=== PATIENT | male | born 1940 | race Caucasian/White ===

== ENCOUNTER 2019-08-18 09:09 | Outpatient (CLI) | payer OTHER, SELFPAY ==
--- NOTE | ~2019-08-18 | CT_ITS ---
EXAMINATION: CT abdomen pelvis wo/w con DATE: 08/18/2019 10:15 INDICATION: Microscopic hematuria. TECHNIQUE: Computed tomography (CT) of the abdomen and pelvis was performed without and with intraven ous contrast using a total of 130 mL Omnipaque-350 intravenous contrast with a double-bolus technique for simultaneous opacification of the renal parenchyma and renal collecting system. Automated exposu re control and iterative reconstruction technique were employed. The dose-length product was 1938.83 mGy-cm. COMPARISON: CT abdomen and pelvis 04/12/2015 FINDINGS: The visualized portions of the lung bases demonstrate mild atelectasis. No pleural effusion. There is chronic mild pleural thickening on the right. The heart size is normal. There are coronary artery ca lcifications. There are changes of coronary bypass grafting. No pericardial effusion. The liver and s pleen are normal. There are changes of cholecystectomy. There is a calcification in the head of the p ancreas, consistent with chronic pancreatitis. The adrenal glands are normal. There is a 1.5 cm cyst in right kidney. There is no urolithiasis. The ureters and bladder are well opacified and are normal. There is diverticulosis of the colon without evidence of diverticulitis. There are no dilated loops of bowel. The appendix is normal. 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 There are no pathologically enlarged lymph nodes. There is no free intraperitoneal fluid. There is prominent fa t in right inguinal canal that may be a hernia. There is severe lumbar spondylosis. There is moderate thoracic spondylosis. IMPRESSION: 1. No etiology for hematuria. 2. 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 Reviewed, dictated and finalized at location A.
[2019-08-18 09:48] LABS: Estimated Glomerular Filt Rate > 60
== END 2019-08-18 09:10 | disposition home or self-care (01) ==
LOC: ANHIMG 09:17
PROVIDERS: Visit Provider Urology
DX: R31.29 Other microscopic hematuria (principal); I71.4 Abdominal aortic aneurysm, without rupture
CPT/HCPCS: 36415; 74178; Q9967

== ENCOUNTER 2019-11-28 14:00 | Outpatient (CLI) | payer OTHER, SELFPAY ==
--- NOTE | 2019-11-28 | ECHO_ITS ---
Patient Info Name: Josh Webb Age: 79 years : 1940 Gender: Male Ht: 70 in Wt: 200 lbs BSA: 2.14 m2 HR: 53 bpm BP: 159 / 88 mmHg Heart Rhythm: Sinus Rhythm Technical Quality: Good Exam Date: 11/28/2019 2:23 PM Exam Location: [facility] Patient Status: Outpatient Admit Date: 11/28/2019 Staff Ordering Physician: CleveStephen DO Supervisor Ditching: Puja Kunz RDCS Attending Provider: CleveStephen DO Exam Type: CA echo doppler color flow Study Info Indications M79.89 - SWELLING OF BOTH LOWER EXTREMITIES Complete two-dimensional, color flow and Doppler transthoracic echocardiogram is performed. Summary 1. Complete two-dimensional, color flow and Doppler transthoracic echocardiogram is performed. 2. Left ventricular systolic function is normal, estimated at 50-55%. 3. The left ventricular diastolic function is grade I diastolic dysfunction. 4. Left atrial chamber dimension is moderately enlarged. 5. Trivial amount of mitral valve regurgitation. Left Ventricle Left ventricular chamber dimension is normal. Left ventricular systolic function is normal, estimated at 50-55%. The left ventricular diastolic function is grade I diastolic dysfunction. Right Ventricle Right ventricular chamber dimension is mildly enlarged. Left Atria Left atrial chamber dimension is moderately enlarged. Right Atria Right atrial chamber dimension is normal. Aortic Valve The aortic valve is normal. Pulmonic Valve The pulmonic valve is normal. There is trace pulmonic regurgitation. Mitral Valve The mitral valve has normal leaflets. There is trace mitral valve regurgitation. The mitral valve annulus is mildly calcified. Tricuspid Valve The tricuspid valve leaflets are normal. Pericardium/Pleural The pericardium appears normal. Aorta The aortic root size at the sinus of Valsalva is normal. Left Ventricular Outflow Tract Name Value Normal LVOT 2D LVOT Diameter 2.0 cm LVOT Doppler LVOT Peak Gradient 4 mmHg LVOT Mean Gradient 2 mmHg LVOT VTI 26 cm LVOT VTI/AV VTI Ratio 0.9 LVOT Stroke Volume 80 ml LVOT CO 3.4 l/min LVOT CI 1.6 l/min/m2 Pulmonic Valve Name Value Normal RVOT Doppler RVOT Peak Gradient 1 mmHg PV Doppler PV Peak Gradient 3 mmHg Mitral Valve Name Value Normal MV Doppler
== END 2019-11-28 14:01 | disposition home or self-care (01) ==
LOC: ANHCARD 14:01
PROVIDERS: Visit Provider Student in an Organized Health Care Education/Training Program
DX: M79.89 Other specified soft tissue disorders (principal)
CPT/HCPCS: 93306

== ENCOUNTER 2020-09-24 08:42 | Outpatient (CLI) | payer OTHER, SELFPAY ==
--- NOTE | ~2020-09-24 | CT_ITS ---
EXAMINATION: CT abdomen pelvis w con DATE: 09/24/2020 09:43 INDICATION: Abdominal aortic aneurysm. Chronic pancreatitis. TECHNIQUE: Computed tomography (CT) of the abdomen and pelvis was performed with 100 cc Omnipaque 350 intravenous contrast. Automated exposure control and iterative reconstruction technique were employe d. Exam dose: 1420.36 mGy-cm total exam DLP. COMPARISON: 08/18/2019 CT abdomen pelvis FINDINGS: Status post sternotomy and probable coronary bypass graft surgery. There is mild atelectasi s or scarring at the lung bases. Status post cholecystectomy. No hepatic, splenic, pancreatic, adrenal or renal space-occupying mass l esion is evident. No urinary tract calculus or hydroureteronephrosis is evident. There is prostate enlargement and calcification. There is moderate thickening of the urinary bladder wall. Right mild fat-containing inguinal hernia. There is calcification of the abdominal aorta; stable approximately 3 x 1 cm infrarenal abdominal aor tic aneurysm. No intraperitoneal or retroperitoneal or pelvic mass lesion or adenopathy or ascites. Normal appendix. There is diverticulosis of left and right colon; no CT evidence of diverticulitis. Degenerative changes of the thoracic and lumbar spine including severe degenerative disease at L5-S1. Bilateral hip osteoarthritis. IMPRESSION: Stable approximately 3.1 cm infrarenal abdominal aortic aneurysm Status post cholecystectomy Prostate enlargement and calcification Reviewed, dictated and finalized at Location [facility]. Reviewed, dictated and finalized at location A.
[2020-09-24 09:28] LABS: Estimated Glomerular Filt Rate 58
== END 2020-09-24 08:43 | disposition home or self-care (01) ==
PROVIDERS: PCP Student in an Organized Health Care Education/Training Program; Visit Provider Student in an Organized Health Care Education/Training Program
DX: I71.4 Abdominal aortic aneurysm, without rupture (principal); K86.1 Other chronic pancreatitis; Z90.49 Acquired absence of other specified parts of digestive tract; N40.0 Benign prostatic hyperplasia without lower urinary tract symptoms
CPT/HCPCS: 74177; Q9967

== ENCOUNTER 2021-08-13 09:03 | Outpatient (CLI) | payer OTHER, SELFPAY ==
--- NOTE | ~2021-08-13 | US_ITS ---
EXAMINATION: US aorta DATE: 08/13/2021 09:53 INDICATION: Abdominal aortic aneurysm in male. TECHNIQUE: Grayscale, color Doppler, and pulsed Doppler images of the aorta and common iliac arteries were obtained. COMPARISON: CT 09/24/20 FINDINGS: The aorta demonstrates a 3.0 cm fusiform infrarenal aneurysm. The right common iliac artery is normal in caliber. The left common iliac artery is normal in caliber. IMPRESSION: 1. Stable 3.0 cm fusiform infrarenal aortic aneurysm. Reviewed, dictated and finalized at location A.
== END 2021-08-13 09:04 | disposition home or self-care (01) ==
PROVIDERS: PCP Student in an Organized Health Care Education/Training Program; Visit Provider Student in an Organized Health Care Education/Training Program
DX: I71.4 Abdominal aortic aneurysm, without rupture (principal)
CPT/HCPCS: 76775

== ENCOUNTER 2025-02-24 10:37 | Outpatient (CLI) | payer MEDICARE, SELFPAY ==
--- NOTE | ~2025-02-24 | US_ITS ---
EXAM/PROCEDURE: US aorta HISTORY: abd. aortic aneurysm COMPARISON: August 13, 2021 TECHNIQUE: Abdominal aortic ultrasound FINDINGS: Maximum diameter of the abdominal aorta measures 3.4 x 2.1 cm in the infrarenal portion. This compares to 3 cm on the previous exam. IMPRESSION: Increased size of 3 cm infrarenal abdominal aortic aneurysm to 3.4 cm on the current study. Correlation with follow-up surveillance scan of the abdominal aorta in 12 months recommended or sooner if clinically appropriate. Reviewed, dictated and finalized at location A. TRIPPER IMPRESSION: Increased size of 3 cm infrarenal abdominal aortic aneurysm to 3.4 cm on the cu rrent study. Correlation with follow-up surveillance scan of the abdominal aort a in 12 months recommended or sooner if clinically appropriate.
--- OUTSIDE RECORDS SUMMARY | 2025-02-24 11:09 | XMS_ITS | Clinical Summary ---
Author Organization [facility] [address] Address [address] [place] [address] Care Team Providers Care Cutter Hand Name Role Phone Stephen Poon DO Primary Care Provide r Allergies No known active allergies Medications metFORMIN (GLUCOPHAGE) 500 mg tablet take 1 Tablet by oral route 2 times every day with morning and evening meals 0 0 4 Active aspirin (ASPIR-81) 81 mg tablet take 1 tablet by oral route 5 days per week 0 0 4 Active tamsulosin (FLOMAX) 0.4 mg extended release capsule TAKE 2 CAPSULES BY MOUTH ONCE DAILY 30 MINUTES FOLLOWING THE SAME MEAL EACH DAY 1 9 Active glimepiride (AMARYL) 1 mg tabletIndicatio ns:type 2 diabetes mellitus Take 1 mg by mouth daily before breakfast Active olmesartan (BENICAR) 40 mg tablet Take 40 mg by mouth daily 0 Active finasteride (PROSCAR) 5 mg tablet Take 5 mg by mouth daily Active spironolactone (ALDACTONE) 25 mg tablet Take 25 mg by mouth daily Active Active Problems Problem Noted Date Diagnosed Date 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 fib Chronic coronary artery disease Coronary Artery Disease Family History Medical History Relation Name Comments Cancer Father Rakan Ny Cancer; Caus e of : Cancer Relation Name Status Comments Father Rakan Ny (Age 74) Social History Tobacco Use Types Packs/Day Years Used Date Smoking Tobacco: Former Smokeless Tobacco: Former Alcohol Use Standard Drinks/Week Comments Yes 0 (1 standard drink = 0.6 oz pur e alcohol) Sex and Gender Information Value Date Recorded Sex Assigned at Not on file Legal Sex Male 7:14 PM [employer] Gender Identity Male 02/21/2021 7:39 PM [employer] Sexual Orientation Not on file Last Filed Vital Signs Vital Sign Reading Time Taken Comments Blood Pressure 104/62 02/26/2021 1:49 PM [employer] Pulse 56 02/26/2021 1:49 PM [employer] Temperature - - Respiratory Rate - - Oxygen Saturation 97% 02/26/2021 1:49 PM [employer] Inhaled Oxygen Concentration - - Weight 96.6 kg (213 lb) 02/26/2021 1:49 PM [employer] Height 177.8 cm (5' 10) 02/26/2021 1:49 PM [employer] Body Mass Index 30.56 02/26/2021 1:49 PM [employer] Plan of Treatment Not on file Insurance [facility] Care Teams Cutter Hand Relationship Specialty Start Date End Date Stephen Poon DO [address] [place] [id number] PCP - General Family Medicine 02/21/20
== END 2025-02-24 10:38 | disposition home or self-care (01) ==
PROVIDERS: PCP Student in an Organized Health Care Education/Training Program; Visit Provider Student in an Organized Health Care Education/Training Program
DX: I71.40 Abdominal aortic aneurysm, without rupture, unspecified (principal)
CPT/HCPCS: 76775